=== PATIENT | female | born 1990 | race Caucasian/White ===

== ENCOUNTER 2016-11-14 14:37 | Emergency (ER) | payer BC, OTHER ==
[2016-11-14] MEDS ORDERED: Sodium Chloride 0.9% 1000 ML 1,000 ML IV STA (14:52)
[2016-11-14] MEDS ORDERED: Zofran 4 MG/2 ML VIAL IV ONE (14:52)
--- NOTE | 2016-11-14 14:52 | ERPHSYRPT ---
- History of Present Illness Time Seen by Provider: 11/14/16 14:42 Historian: patient, family Exam Limitations: no limitations Physician History: Pt. is at 6+4 weeks by dates. She has not seen OB yet. She was diagnosed with Strep pharyngitis 1 week ago, but was unable to tolerate Amoxicillin d/t nausea. She began vomiting today x 7 with diarrha episodes 4-5 today. No vaginal cramping or bleeding. Timing/Duration: today Activities at Onset: none Severity of Pain-Max: mild Severity of Pain-Current: mild Modifying Factors: Improves With: eating Associated Symptoms: vomiting Previous symptoms: same symptoms as today Allergies/Adverse Reactions: No Known Drug Allergies Allergy (Unverified 11/14/16 14:49) Home Medications: Doxylamine/Pyridoxine HCl [Diclegis Dr 10-10 mg Tablet] 1 each PO HS 11/14/16 [ History] Vits W-Ca,Fe,FA(<1Mg) [] 1 each PO HS 11/14/16 [History] - Review of Systems Constitutional: No Symptoms Eyes: No Symptoms Ears, Nose, & Throat: No Symptoms Respiratory: No Symptoms Cardiac: No Symptoms Abdominal/Gastrointestinal: Nausea, Vomiting Genitourinary Symptoms: No Symptoms Musculoskeletal: No Symptoms Skin: No Symptoms Neurological: No Symptoms Psychological: No Symptoms Endocrine: No Symptoms Hematologic/Lymphatic: No Symptoms Immunological/Allergic: No Symptoms - Nursing Vital Signs Nursing Vital Signs: Initial Vital Signs Temperature 97.2 F Temperature Source Oral Pulse Rate 80 Respiratory Rate 18 Blood Pressure 118/59 Pain Intensity 0 - Physical Exam General Appearance: moderate distress Eye Exam: PERRL/EOMI, eyes nml inspection Ears, Nose, Throat Exam: normal ENT inspection, pharynx normal Neck Exam: normal inspection, non-tender, supple, full range of motion Respiratory Exam: normal breath sounds, lungs clear Cardiovascular Exam: regular rate/rhythm, normal heart sounds, normal peripheral pulses Gastrointestinal/Abdomen Exam: soft, normal bowel sounds Extremity Exam: normal inspection, normal range of motion, pelvis stable Neurologic Exam: alert, oriented x 3, cooperative Skin Exam: normal color, warm, dry SpO2 Interpretation: normal SpO2: 100 Oxygen Delivery: Room Air - Course Nursing assessment & vital signs reviewed: Yes Ordered Tests: Active Orders 24 hr Category Date Time Status CBC W DIFF Stat Lab 11/14/16 15:00 Completed CMP Stat Lab 11/14/16 15:00 Completed UA W/ MICROSCOPIC Stat Lab 11/14/16 15:00 Completed Medication Summary Discontinued Medications Generic Name Dose Route Start Last Admin Trade Name Radha PRN Reason Stop Dose Admin Sodium Chloride 1,000 mls @ 999 mls/hr 11/14/16 14:52 11/14/16 15:05 Sodium Chloride 0.9% 1000 Ml IV 11/14/16 15:52 999 mls/hr .Q1H1M STA Administration Sodium Chloride Confirm 11/14/16 14:54 Sodium Chloride 0.9% 1000 Ml Administered 11/14/16 14:55 Dose 1,000 mls @ ud .ROUTE .STK-MED ONE Ceftriaxone Sodium/Dextrose Confirm 11/14/16 14:54 Rocephin 1 Gm-D5w 50 Ml Bag Administered 11/14/16 14:55 Dose 50 mls @ ud IV .STK-MED ONE Ceftriaxone Sodium/Dextrose 50 mls @ 100 mls/hr 11/14/16 15:04 11/14/16 15:05 Rocephin 1 Gm-D5w 50 Ml Bag IV 11/14/16 15:33 100 mls/hr STAT ONE Administration Ondansetron HCl 4 mg 11/14/16 14:52 11/14/16 15:04 Zofran 4 Mg/2 Ml Vial IV 11/14/16 14:53 4 mg STAT ONE Administration Ondansetron HCl Confirm 11/14/16 14:54 Zofran 4 Mg/2 Ml Vial Administered 11/14/16 14:55 Dose 4 mg .ROUTE .STK-MED ONE Lab/Rad Data: Laboratory Result Diagrams 11/14/16 15:00 11/14/16 15:00 Laboratory Results 11/14/16 11/14/16 11/14/16 Range/Units 15:00 15:00 15:00 WBC 13.9 H (4.0-10.5) K/mm3 RBC 4.78 (4.1-5.4) M/mm3 Hgb 13.4 (12.0-16.0) gm/dl Hct 41.6 (35-47) % MCV 87.0 (78-100) fl MCH 28.0 (26-32) pg MCHC 32.2 (32-36) g/dl RDW 13.8 (11.5-14.0) % Plt Count 296 (150-450) K/mm3 MPV 11.6 H (6-9.5) fl Gran % 82.0 H (36.0-66.0) % Lymphocytes % 13.4 L (24.0-44.0) % Monocytes % 3.9 (0.0-12.0) % Eosinophils % 0.6 (0.00-5.0) % Basophils % 0.1 (0.0-0.4) % Basophils # 0.02 (0-0.4) Sodium 140 (136-145) mEq/L Potassium 3.8 (3.5-5.1) mEq/L Chloride 104 (98-107) mEq/L Carbon Dioxide 24.2 (21-32) mEq/L Anion Gap 15.7 H (5-15) MEQ/L BUN 6 L (9-20) mg/dL Creatinine 0.70 (0.55-1.30) mg/dl Estimated GFR > 60 ML/MIN Glucose 80 (70-110) MG/DL Calcium 8.5 (8.5-10.1) mg/dL Total Bilirubin 0.4 (0.2-1.0) mg/dL AST 11 L (15-37) U/L ALT 11 L (12-78) U/L Alkaline Phosphatase 59 (46-116) U/L Serum Total Protein 7.7 (6.4-8.2) gm/dL Albumin 3.8 (3.4-5.0) g/dL Ur Collection Type VOID Urine Color YELLOW (YELLOW) Urine Appearance CLEAR (CLEAR) Urine pH 7.5 (5-6) Ur Specific [place] 1.020 (1.005-1.025) Urine Protein TRACE (Negative) Urine Glucose (UA) NEGATIVE (NEGATIVE) mg/dL Urine Ketones NEGATIVE (NEGATIVE) Urine Nitrite NEGATIVE (NEGATIVE) Urine Bilirubin NEGATIVE (NEGATIVE) Urine Urobilinogen 0.2 (0-1) mg/dL Urine WBC (Auto) NEGATIVE (NEGATIVE) Urine RBC (Auto) NEGATIVE (0-5) Aquiles/ul Urine Microscopic WBC 0-2 (0-5) /HPF Ur Epithelial Cells FEW (FEW) /HPF Urine Bacteria FEW (NEGATIVE) /HPF Specimen Received 11/14/16 1505 - Progress Progress: improved Counseled pt/family regarding: lab results, diagnosis, need for follow-up (with OB 1 week) - Departure Time of Disposition: 16:00 Departure Disposition: Home Clinical Impression: UTI (urinary tract infection) during , Dehydration Condition: Stable Critical Care Time: No Referrals: CHARLENE KEYS [Primary Care Provider] -
[2016-11-14] MEDS ORDERED: Sodium Chloride 0.9% 1000 ML 1,000 ML ONE (14:54)
[2016-11-14] MEDS ORDERED: ROCEPHIN 1 Gm-D5w 50 ml Bag** 50 ML IV ONE ×2 (14:54→15:04)
[2016-11-14] MEDS ORDERED: Zofran 4 MG/2 ML VIAL ONE (14:54)
[2016-11-14 15:17] LABS: COMPLETE URINE MICROSCOPIC? YES; Collection Type VOID; Ph 7.5 (5-6)
[2016-11-14 15:20] LABS: BASOPHIL % 0.1 % (0.0-0.4); Eosinophil % 0.6 % (0.00-5.0); Lymphocytes % 13.4 % (24.0-44.0); Mean Platelet Volume 11.6 fl (6-9.5); Monocytes % 3.9 % (0.0-12.0); Platelet Count 296 K/mm3 (150-450); Red Blood Count 4.78 M/mm3 (4.1-5.4); Red Cell Distribution Width 13.8 % (11.5-14.0); White Blood Count 13.9 K/mm3 (4.0-10.5)
[2016-11-14 15:31] LABS: WBC 0-2 /HPF (0-5)
[2016-11-14 15:32] LABS: Bacteria FEW /HPF (NEGATIVE); Epithelial Cells FEW /HPF (FEW)
[2016-11-14 15:36] LABS: ALBUMIN 3.8 g/dL (3.4-5.0); ALKALINE PHOSPHATASE 59 U/L (46-116); ANION GAP 15.7 MEQ/L (5-15); BILIRUBIN,TOTAL 0.4 mg/dL (0.2-1.0); BLOOD UREA NITROGEN 6 mg/dL (9-20); CHLORIDE 104 mEq/L (98-107); Carbon Dioxide 24.2 mEq/L (21-32); Glucose 80 MG/DL (70-110); Potassium 3.8 mEq/L (3.5-5.1); SGOT/AST 11 U/L (15-37); SGPT/ALT 11 U/L (12-78); SODIUM 140 mEq/L (136-145); Total Protein 7.7 gm/dL (6.4-8.2)
[2016-11-14 16:05] VITALS: O2SAT 100
[2016-11-14 16:19] VITALS: BP 128/70; PULSE 72
== END 2016-11-14 16:19 | disposition home or self-care (01) ==
LOC: ED 14:37
DX: O23.41 Unspecified infection of urinary tract in pregnancy, first trimester (principal)
CPT/HCPCS: 36415; 80053; 81000; 85025; 96360; 96361; 96365; 96374; 99283; J0696; J2405